=== PATIENT | female | born 1955 | race Caucasian/White ===

== ENCOUNTER → 2016-12-16 | Outpatient (CLI) | payer OTHER | END | disposition home or self-care (01) | LOC: C.PAPS 10:20 | PROVIDERS: ATTEND Obstetrics & Gynecology | DX: Z01.419 Encounter for gynecological examination (general) (routine) without abnormal findings (principal) ==

== ENCOUNTER 2017-12-06 18:39 | Emergency (ER) | payer BC, OTHER ==
[~2017-12-06] VITALS: Ht 161.3 cm; Wt 48.8 kg
[2017-12-06 18:54] VITALS: TEMP 36.8; Ht 161.3 cm; Wt 48.8 kg
--- NOTE | 2017-12-06 19:16 | EMERGENCY ROOM VISIT NOTE ---
History Report prepared by Ileana: Lee Emerson Under the Supervision of: Dr. Brianna Driver M.D. First contact with patient: 19:04 Chief Complaint: CARDIAC ASSESSMENT Stated Complaint: CHEST DISCOMFORT ALL DAY History of Present Illness The patient is a 62 year old female who presents to the Emergency Room with complaints of CP that started 4 days ago. She notes an episode of sharp chest pain at that time that felt like a "constriction", especially when taking a deep breath. The patient states that she had a few twinges the following day, but had felt okay since then. However, she says that when she was at work earlier today, she noticed that she felt lightheaded, and had a bit of pain around her shoulders. The patient adds that she noted an irregular heartbeat. She says that she was just standing at work when she started getting these symptoms. The patient notes that she had palpitations years ago, and had a stress test which showed an early beat. She says that she did take a full- strength Aspirin around 5 hours ago. The patient says that she currently does not have any chest pain. She denies any shortness of breath, feet swelling, new back pain, or recent cough. She states that she has not had any trouble walking or exerting herself. The patient notes no chronic medical problems, and no recent travels. She adds that she was at Dr. Graham's office a few weeks ago, and her blood pressure was normal at that time. She notes no history of smoking. Source of History: patient Onset: 4 days ago Position: chest Quality: other (need for cardiac assessment) Timing: other (persistent) Associated Symptoms: + chest pain, No cough, No SOB, No back pain Note: Associated symptoms: Episode of lightheadedness earlier today, some pain around shoulder. Some palpitations. Denies feet swelling. Review of Systems See HPI for pertinent positives & negatives. A total of 10 systems reviewed and were otherwise negative. Past Medical & Surgical Medical Problems: (1) No chronic diseases present Family History No pertinent family history Social History Smoking Status: Never Smoker Marital Status: Housing Status: lives with family Occupation Status: employed Current/Historical Medications Scheduled Estradiol Vaginal (Vagifem), Unknown Dose PV 2XWK Estrog Conj/Medryoxyprog Acet (Prempro 0.3MG/1.5MG), 1 TAB PO DAILY Lactobacillus (Probiotic), 1 CAP PO DAILY Levothyroxine Sodium (Levothyroxine Sodium), 50 MCG PO DAILY Allergies Coded Allergies: Codeine (Verified Allergy, Intermediate, "HYPERACTIVE, GI UPSET, ANIXETY, 12/06/17) Physical Exam Vital Signs Date Time Temp Pulse Resp B/P (MAP) Pulse Ox O2 Delivery O2 Flow Rate FiO2 12/06/17 22:05 60 16 140/89 98 Room Air 12/06/17 21:34 60 16 161/93 98 Room Air 12/06/17 19:36 98 Room Air 12/06/17 19:18 63 12/06/17 18:54 36.8 60 20 158/100 98 Room Air Physical Exam Vital signs reviewed. General: Well-appearing 62 year old female, in no significant distress. HEENT: No scleral icterus, PERRLA, neck supple. Atraumatic. Cardiovascular: Regular rate and rhythm, no extra sounds. Pulmonary: Clear to auscultation bilaterally, normal work of breathing. Abdomen: Soft, nontender, nondistended, positive bowel sounds. Musculoskeletal: Atraumatic, no peripheral edema. Neurologic: Patient awake alert and oriented x 3, full strength in all 4 extremities. Cranial nerves 2 through 12 grossly intact. Skin: Warm, dry, no rash Medical Decision & Procedures ER Provider Diagnostic Interpretation: X-ray results as stated below per interpretation by me and the radiologist: SINGLE VIEW CHEST CLINICAL HISTORY: Atypical chest pain. Hypertension. FINDINGS: An AP, portable, upright chest radiograph is compared to study dated 03/18/2008. The examination is degraded by portable technique and patient rotation. The heart is mildly enlarged. The pulmonary vasculature is noncongested. Chronic interstitial thickening is similar to previous. The lungs and pleural spaces are clear. No pneumothorax is seen. The skeletal structures are osteopenic. The bony thorax is grossly intact. IMPRESSION: Mild cardiac enlargement with no acute cardiopulmonary abnormality. Electronically signed by: Noé Gaytan M.D. 12/06/2017 8:00 PM Dictated Date/Time: 12/06/2017 7:59 PM Laboratory Results 12/06/17 19:30 Red Blood Count 4.55, Mean Corpuscular Volume 91.9, Mean Corpuscular Hemoglobin 31.6, Mean Corpuscular Hemoglobin Concent 34.4, Mean Platelet Volume 10.0, Neutrophils (%) (Auto) 49.8, Lymphocytes (%) (Auto) 35.3, Monocytes (%) (Auto) 12.4, Eosinophils (%) (Auto) 1.4, Basophils (%) (Auto) 0.8, Neutrophils # (Auto ) 1.81, Lymphocytes # (Auto) 1.28, Monocytes # (Auto) 0.45, Eosinophils # (Auto ) 0.05, Basophils # (Auto) 0.03 12/06/17 19:30 Test 12/06/17 19:30 12/06/17 19:37 12/06/17 19:40 White Blood Count 3.63 K/uL (4.8-10.8) Red Blood Count 4.55 M/uL (4.2-5.4) Hemoglobin 14.4 g/dL (12.0-16.0) Hematocrit 41.8 % (37-47) Mean Corpuscular Volume 91.9 fL (80-100) Mean Corpuscular Hemoglobin 31.6 pg (25-34) Mean Corpuscular Hemoglobin Concent 34.4 g/dl (32-36) Platelet Count 252 K/uL (130-400) Mean Platelet Volume 10.0 fL (7.4-10.4) Neutrophils (%) (Auto) 49.8 % Lymphocytes (%) (Auto) 35.3 % Monocytes (%) (Auto) 12.4 % Eosinophils (%) (Auto) 1.4 % Basophils (%) (Auto) 0.8 % Neutrophils # (Auto) 1.81 K/uL (1.4-6.5) Lymphocytes # (Auto) 1.28 K/uL (1.2-3.4) Monocytes # (Auto) 0.45 K/uL (0.11-0.59) Eosinophils # (Auto) 0.05 K/uL (0-0.5) Basophils # (Auto) 0.03 K/uL (0-0.2) RDW Standard Deviation 41.4 fL (36.4-46.3) RDW Coefficient of Variation 12.4 % (11.5-14.5) Immature Granulocyte % (Auto) 0.3 % Immature Granulocyte # (Auto) 0.01 K/uL (0.00-0.02) Anion Gap 6.0 mmol/L (3-11) Est Creatinine Clear Calc Drug Dose 62.3 ml/min Estimated GFR () 103.0 Estimated GFR (Non- 88.9 BUN/Creatinine Ratio 20.7 (10-20) Calcium Level 9.2 mg/dl (8.5-10.1) Magnesium Level 2.4 mg/dl (1.8-2.4) Total Bilirubin 0.3 mg/dl (0.2-1) Direct Bilirubin 0.1 mg/dl (0-0.2) Aspartate Amino Transf (AST/SGOT) 22 U/L (15-37) Alanine Aminotransferase (ALT/SGPT) 29 U/L (12-78) Alkaline Phosphatase 58 U/L (45-117) Total Creatine Kinase 139 U/L (26-192) Creatine Kinase MB 2.3 ng/ml (0.5-3.6) Creatine Kinase MB Ratio 1.7 (0-3.0) Total Protein 7.4 gm/dl (6.4-8.2) Albumin 3.9 gm/dl (3.4-5.0) Bedside D-Dimer 103 ng/mlFEU (0-450) Bedside Troponin I < 0.030 ng/ml (0-0.045) Urine Color YELLOW Urine Appearance ERROR (CLEAR) Urine pH 5.0 (4.5-7.5) Urine Specific [place] 1.008 (1.000-1.030) Urine Protein NEG (NEG) Urine Glucose (UA) NEG (NEG) Urine Ketones NEG (NEG) Urine Occult Blood NEG (NEG) Urine Nitrite NEG (NEG) Urine Bilirubin NEG (NEG) Urine Urobilinogen NEG (NEG) Urine Leukocyte Esterase NEG (NEG) Laboratory results per my review. ECG Per My Interpretation Indication: chest pain Rate (beats per minute): 65 Rhythm: normal sinus Findings: no acute ischemic change, no ectopy, other (QTC 447) ED Course 1905: Past medical records reviewed. The patient was evaluated in room C10. A complete history and physical examination was performed. 2156: Upon reevaluation, the patient appeared to be resting comfortably. I discussed findings with her. She verbalized agreement of the treatment plan. She was discharged home. Medical Decision Differential diagnosis: Acute coronary syndrome, pulmonary embolus, aortic dissection, musculoskeletal pain, pneumonia, pleural effusion, pneumothorax This pt was evaluated and appeared to be in no distress. IV access was obtained and lab work was drawn. EKG reveals no acute ischemic change. Lab work reveals no significant abnormalities, ddimer and trop are normal. CXR is clear. Pt BP is noted to be elevated. She denies any h/o similar. Pt was d/c to f/u closely with PCP this week for reevaluation. She will have BP rechecked at that time. Pt will return to the ED for worsening of symptoms or any medical concerns. Medication Reconcilliation Current Medication List: was personally reviewed by me Blood Pressure Screening Patient's blood pressure: Elevated blood pressure Blood pressure disposition: Referred to PCP Impression Primary Impression: Hypertension Scribe Attestation The scribe's documentation has been prepared under my direction and personally reviewed by me in its entirety. I confirm that the note above accurately reflects all work, treatment, procedures, and medical decision making performed by me. Departure Information Dispostion Home / Self-Care Referrals Raul Graham M.D. (PCP) Viktoriya Pena MD Patient Instructions My [facility] Additional Instructions Diagnosis: Hypertension Call the clinic at 8 am, Dr Pena of family medicine should be able to see you tomorrow at [facility] office. Return to the ED for worsening of symptoms or any medical concerns.
[2017-12-06] MEDS ORDERED: LEVO50TA6 PO (19:53)
[2017-12-06] MEDS ORDERED: ESTR10TA PV (19:53)
[2017-12-06] MEDS ORDERED: LACT1CAP6 PO (19:53)
[2017-12-06] MEDS ORDERED: CONJ0.3T3 PO (19:53)
--- NOTE | 2017-12-06 20:01 | DIAGNOSTIC IMAGING REPORT ---
SINGLE VIEW CHEST CLINICAL HISTORY: Atypical chest pain. Hypertension. FINDINGS: An AP, portable, upright chest radiograph is compared to study dated 03/18/2008. The examination is degraded by portable technique and patient rotation. The heart is mildly enlarged. The pulmonary vasculature is noncongested. Chronic interstitial thickening is similar to previous. The lungs and pleural spaces are clear. No pneumothorax is seen. The skeletal structures are osteopenic. The bony thorax is grossly intact. IMPRESSION: Mild cardiac enlargement with no acute cardiopulmonary abnormality. Electronically signed by: Noé Gaytan M.D. 12/06/2017 8:00 PM Dictated Date/Time: 12/06/2017 7:59 PM
[2017-12-06 20:02] LABS: BASO % 0.8 %; BASO ABS # 0.03 K/uL (0-0.2); EOS % 1.4 %; EOS ABS # 0.05 K/uL (0-0.5); HEMATOCRIT 41.8 % (37-47); HEMOGLOBIN 14.4 g/dL (12.0-16.0); IG# 0.01 K/uL (0.00-0.02); LYMPH % 35.3 %; LYMPH ABS # 1.28 K/uL (1.2-3.4); MEAN CELL VOLUME 91.9 fL (80-100); MEAN CORPUSCULAR HEMOGLOBIN 31.6 pg (25-34); MEAN CORPUSCULAR HGB CONC 34.4 g/dl (32-36); MONO % 12.4 %; MONO ABS # 0.45 K/uL (0.11-0.59); NEUT % 49.8 %; NEUT ABS # 1.81 K/uL (1.4-6.5); PLATELET COUNT 252 K/uL (130-400); RED CELL DISTRIBUTION WIDTH CV 12.4 % (11.5-14.5); RED CELL DISTRIBUTION WIDTH SD 41.4 fL (36.4-46.3); WHITE BLOOD COUNT 3.63 K/uL (4.8-10.8)
[2017-12-06 20:19] LABS: ALBUMIN 3.9 gm/dl (3.4-5.0); CALCIUM 9.2 mg/dl (8.5-10.1); CREATININE 0.73 mg/dl (0.60-1.20)
[2017-12-06 20:24] LABS: CKMB 2.3 ng/ml (0.5-3.6); TOTAL PROTEIN 7.4 gm/dl (6.4-8.2)
[2017-12-06 22:05] VITALS: BP 140/89; PULSE 60; O2SAT 98
== END 2017-12-06 22:25 | disposition home or self-care (01) ==
LOC: C.EDB 18:41 → C.EDC 22:25
DX: I10 Essential (primary) hypertension (principal); Z79.899 Other long term (current) drug therapy; Z88.5 Allergy status to narcotic agent